=== PATIENT | female | born 1970 | race Caucasian/White ===

== ENCOUNTER 2022-01-28 20:07 | Emergency (ER) | payer OTHER ==
[~2022-01-28] VITALS: Ht 154.9 cm; Wt 74.8 kg
[2022-01-28 20:42] VITALS: BP 140/71
--- NOTE | 2022-01-28 20:54 | NUR ---
PT AMBULATES TO BED 9 WITH STEADY GAIT
--- NOTE | 2022-01-28 21:10 | NUR ---
Note undone in EDM - 01/28/22 at 2143 by AMY 51/F BIB SELF C/C DIZZINESS XFRIDAY. PER PATIENT THE DIZZINESS STARTED AFTER SHE SMELLED CLEANING SUPPLIES ON WEDNESDAY (CLOROX MIXED WITH LYSOL). +NAUSEA +DIARRHEA +INCREASED FATIGUE. PATIENT ALSO C/O INTERMITTENT HEADACHES. PATIENT UNABLE TO SMELL FOOD WITHOUT TRIGGERING THE NAUSEA. 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 PATIENT AMBULATORY WITH STEADY GAIT. AAOX4. PMHX CA NKA
--- NOTE | 2022-01-28 21:10 | NUR ---
51/F BIB SELF C/C DIZZINESS XMONDAY. PER PATIENT THE DIZZINESS STARTED AFTER SHE SMELLED CLEANING SUPPLIES ON WEDNESDAY (CLOROX MIXED WITH LYSOL). +NAUSEA +DIARRHEA +INCREASED FATIGUE. PATIENT ALSO C/O INTERMITTENT HEADACHES. PATIENT UNABLE TO SMELL FOOD WITHOUT TRIGGERING THE NAUSEA. 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 PATIENT AMBULATORY WITH STEADY GAIT. AAOX4. PMHX CA NKA
[2022-01-28 21:19] VITALS: BP 151/61
[2022-01-28] MEDS ORDERED: ONDA8TAB87 PO (22:15)
== END 2022-01-28 22:40 | disposition home or self-care (01) ==
LOC: MED 20:07
DX: R11.0 Nausea (principal); R42 Dizziness and giddiness; Z85.9 Personal history of malignant neoplasm, unspecified; Z90.710 Acquired absence of both cervix and uterus
CPT/HCPCS: 81002; 81025; 99283

== ENCOUNTER 2022-09-28 04:05 | Emergency (ER) | payer OTHER ==
[~2022-09-28] VITALS: Ht 154.9 cm; Wt 68.0 kg
[2022-09-28 04:05] VITALS: BP 118/85; PULSE 76; RESP 17; TEMP 97.6; O2SAT 98
[~2022-09-28 04:05] MED LIST: ONDA8TAB87 PO
--- NOTE | 2022-09-28 04:05 | NUR ---
TO BED AMBULATORY
--- NOTE | 2022-09-28 04:53 | NUR ---
URINE OBTAINED AND SENT TO THE LAB. PT AWAITING TO BE SEEN BY .
[2022-09-28 05:17] LABS: APPEARANCE,URINE CLEAR (CLEAR); BILIRUBIN,URINE NEGATIVE (NEGATIVE); BLOOD, URINE NEGATIVE (NEGATIVE); COLOR,URINE YELLOW (YELLOW); LEUKOCYTE ESTERASE ,URINE NEGATIVE (NEGATIVE); NITRITE, URINE NEGATIVE (NEGATIVE); UGLUCOSE NEGATIVE (NEGATIVE)
[2022-09-28] MEDS ORDERED: KETOROLAC 30 MG/ML VIAL IVP ONE (05:20)
[2022-09-28 05:37] LABS: BASOPHILS # (AUTO) 0.1 K/uL (0.00-0.22); BASOPHILS % (AUTO) 1.2 % (0.0-2.0); EOSINOPHILS # (AUTO) 0.2 K/uL (0-0.4); EOSINOPHILS % (AUTO) 3.4 % (0.0-4.0); HEMATOCRIT 38.5 % (36-48); HEMOGLOBIN 12.8 g/dL (12.0-16.0); LYMPHOCYTES # (AUTO) 1.1 K/uL (2.5-16.5); LYMPHOCYTES % (AUTO) 24.2 % (20.5-51.1); MEAN CORPUSCULAR HEMOGLOBIN 29 pg (27-31); MEAN CORPUSCULAR HGB CONC 33 g/dL (33-37); MEAN CORPUSCULAR VOLUME 86.6 fL (80-94); MONOCYTES # (AUTO) 0.4 K/uL (0.8-1.0); MONOCYTES % (AUTO) 9.3 % (1.7-9.3); NEUTROPHILS # (AUTO) 2.9 K/uL (1.8-7.7); NEUTROPHILS % (AUTO) 61.9 % (42.2-75.2); PLATELET COUNT (AUTO) 284 K/uL (140-450); RED BLOOD CELL COUNT(AUTO) 4.44 MIL/uL (4.20-5.40); RED CELL DISTRIBUTION WIDTH 13.6 % (11.6-13.7); WHITE BLOOD COUNT (AUTO) 4.7 K/uL (4.8-10.8)
--- NOTE | 2022-09-28 05:40 | NUR ---
Pt was medicated as ordered.
[2022-09-28 06:08] LABS: ANION GAP 10.6 (8-16); CARBON DIOXIDE 30.1 mmol/L (21-32); CREATININE 0.8 mg/dL (0.6-1.3); POTASSIUM 3.7 mmol/L (3.5-5.1); TOTAL BILIRUBIN 0.3 mg/dL (0.0-1.0)
--- NOTE | 2022-09-28 06:39 | NUR ---
Pt taken off unit to CT scan by w/c escorted by tech.
[2022-09-28 06:40] VITALS: BP 141/70; PULSE 64; RESP 8; TEMP 97.2; O2SAT 99
[2022-09-28] MEDS ORDERED: IBUP-1842 PO (07:20)
== END 2022-09-28 07:31 | disposition home or self-care (01) ==
LOC: MED 04:05
DX: R10.9 Unspecified abdominal pain (principal); Z79.899 Other long term (current) drug therapy; Z90.710 Acquired absence of both cervix and uterus; Z85.858 Personal history of malignant neoplasm of other endocrine glands
CPT/HCPCS: 36415; 74177; 80053; 81003; 83690; 85025; 96374; 99285; J1885; Q9967